=== PATIENT | male | born 1980 | race Caucasian/White ===

== ENCOUNTER → 2018-06-26 15:30 | Outpatient (CLI) | payer OTHER, SELFPAY ==
[2018-06-26 16:35] LABS: Homocysteine 18.9 umol/L (3.2-10.7)
== END ==
PROVIDERS: Family Provider Internal Medicine; PCP Internal Medicine; Referring Provider Internal Medicine; Visit Provider Internal Medicine
DX: Z13.79 Encounter for other screening for genetic and chromosomal anomalies (principal)
CPT/HCPCS: 36415; 83090; 83921

== ENCOUNTER → 2021-09-01 | Outpatient (CLI) | payer BC, SELFPAY ==
[2021-09-01 07:30] LABS: Absolute Lymphocyte Count 2.33 X10^3/uL (0.83-4.51); Absolute Neutrophil Count 3.9 X10^3/uL (2.0-7.7); Basophil# 0.06 X10^3/uL; Basophil% 0.8 % (0-1); Eosinophil# 0.11 X10^3/uL; Eosinophils% 1.6 % (0-5); Hematocrit 43.4 % (40-54); Lymphocyte # 2.33 X10^3/ul (0.83-4.51); Mean Corp Hgb Conc 34.6 g/dL (32-36); Mean Corpuscular Hgb 30.2 pg (27.0-32.0); Mean Corpuscular Volume 87.3 fL (80-94); Mean Platelet Vol. 10.2 fl (6.2-12.0); Monocyte# 0.63 X10^3/uL; Monocyte% 8.9 % (0-10); NRBC Flagged by Analyzer 0 % (0-5); Neutrophil # 3.93 X10^3/uL (2.7-7.7); Neutrophil % 55.6 % (47-70); Platelet Count 299 K/mm3 (150-450); RBC Distribution Width CV 12.6 % (11.6-14.6); RBC Distribution Width SD 40.4 fl (35.1-43.9); Red Blood Count 4.97 M/mm3 (4.6-6.2); White Blood Count 7.1 K/mm3 (4.4-11.0)
[2021-09-01 08:40] LABS: ALB/GLOB Ratio 1.1 RATIO (0.9-2.4); AST(SGOT) 27 U/L (15-37); Alanine Aminotransfer ALT/SGPT 36 U/L (16-61); Albumin, Serum 3.9 g/dL (3.2-5.0); Alkaline Phosphatase 61 U/L (45-117); Anion Gap 6 (5-15); BUN 14 mg/dL (7-18); BUN/Creat Ratio 11.6 RATIO (10-20); Calcium,Total 8.8 mg/dL (8.5-10.1); Chloride 109 mmol/L (98-107); Cholesterol 180 mg/dL (200); Creatinine, Serum 1.21 mg/dL (0.70-1.30); EST Glomerular Filtration Rate 70 mL/min (>60); Est Glom Filt Rate - Afr Amer 85 mL/min (>60); Globulin 3.7 g/dL (2.2-4.2); Glucose 109 mg/dL (74-106); High Density Lipoprotein 63 mg/dL; Potassium 4.1 mmol/L (3.5-5.1); Protein, Total 7.6 g/dL (6.4-8.2); Sodium Level 140 mmol/L (136-145); Thyroid Stim Hormone (TSH) 1.77 uIU/mL (0.358-3.74); Triglycerides 99 mg/dL; Very Low Density Lipoprotein 20 mg/dL (5-40)
== END | disposition home or self-care (01) ==
LOC: LAB 07:17
PROVIDERS: PCP Internal Medicine; Referring Provider Internal Medicine; Visit Provider Internal Medicine
DX: K21.9 Gastro-esophageal reflux disease without esophagitis (principal); F90.9 Attention-deficit hyperactivity disorder, unspecified type; L40.9 Psoriasis, unspecified; Z13.6 Encounter for screening for cardiovascular disorders
CPT/HCPCS: 36415; 80053; 80061; 84443; 85025

== ENCOUNTER → 2022-10-23 | Outpatient (CLI) | payer BC, SELFPAY ==
[2022-10-23 15:38] LABS: Absolute Lymphocyte Count 2.41 X10^3/uL (0.83-4.51); Absolute Neutrophil Count 4.8 X10^3/uL (2.0-7.7); Basophil# 0.07 X10^3/uL; Basophil% 0.9 % (0-1); Eosinophil# 0.06 X10^3/uL; Eosinophils% 0.8 % (0-5); Hematocrit 47.1 % (40-54); Hemoglobin 15.7 g/dL (13.0-16.5); Lymphocyte # 2.41 X10^3/ul (0.83-4.51); Lymphocyte % 30.2 % (19-41); Mean Corp Hgb Conc 33.3 g/dL (32-36); Mean Corpuscular Volume 89.9 fL (80-94); Mean Platelet Vol. 10.7 fl (6.2-12.0); Monocyte# 0.67 X10^3/uL; Monocyte% 8.4 % (0-10); NRBC Flagged by Analyzer 0 % (0-5); Neutrophil # 4.75 X10^3/uL (2.7-7.7); Neutrophil % 59.3 % (47-70); Platelet Count 353 K/mm3 (150-450); RBC Distribution Width CV 12.4 % (11.6-14.6); RBC Distribution Width SD 40.9 fl (35.1-43.9); Red Blood Count 5.24 M/mm3 (4.6-6.2)
[2022-10-23 15:50] LABS: ALB/GLOB Ratio 1.1 RATIO (0.9-2.4); AST(SGOT) 22 U/L (15-37); Alanine Aminotransfer ALT/SGPT 37 U/L (16-61); Albumin, Serum 4.1 g/dL (3.2-5.0); Alkaline Phosphatase 73 U/L (45-117); Anion Gap 5 (5-15); BUN 15 mg/dL (7-18); Calcium,Total 9.5 mg/dL (8.5-10.1); Chloride 104 mmol/L (98-107); Creatinine, Serum 1.25 mg/dL (0.70-1.30); EST Glomerular Filtration Rate 67 mL/min (>60); Est Glom Filt Rate - Afr Amer 82 mL/min (>60); Globulin 3.9 g/dL (2.2-4.2); Glucose 92 mg/dL (74-106); Potassium 3.9 mmol/L (3.5-5.1); Sodium Level 136 mmol/L (136-145)
[2022-10-23 15:52] LABS: Hemoglobin A1c 5.6 % (3.8-5.6)
== END | disposition home or self-care (01) ==
LOC: BIMLAB 12:11
PROVIDERS: PCP Internal Medicine; Referring Provider Internal Medicine; Visit Provider Internal Medicine
DX: Z00.00 Encounter for general adult medical examination without abnormal findings (principal); F90.9 Attention-deficit hyperactivity disorder, unspecified type; K21.9 Gastro-esophageal reflux disease without esophagitis
CPT/HCPCS: 36415; 80053; 83036; 85025

== ENCOUNTER → 2023-10-22 | Outpatient (CLI) | payer BC, SELFPAY ==
[2023-10-22 17:27] LABS: Vitamin B12 566 pg/mL (211-911); Vitamin D,25 Hydroxy 23.8 ng/mL
[2023-10-24 10:09] LABS: QNTFERON TB Mitogen Value > 10.00 IU/mL (.); QNTFERON TB Nil Value 0.02 IU/mL (.); QNTFERON TB1+ Ag Value 0.05 IU/mL (.); QNTFERON TB2+ Ag Value 0.03 IU/mL (.); QNTIFERON TB Positive Criteria Negative (Negative)
[2023-10-31 17:07] LABS: HOMOCYSTEINE 20.2 umol/L (0.0-14.5); Methylmalonic Acid Bld 412 nmol/L (0-378)
== END | disposition home or self-care (01) ==
PROVIDERS: PCP Internal Medicine; Referring Provider Physician Assistant; Visit Provider Physician Assistant
DX: L82.1 Other seborrheic keratosis (principal); L57.8 Other skin changes due to chronic exposure to nonionizing radiation; L81.4 Other melanin hyperpigmentation; D18.01 Hemangioma of skin and subcutaneous tissue; Z71.89 Other specified counseling; L40.0 Psoriasis vulgaris; L20.89 Other atopic dermatitis; Z79.899 Other long term (current) drug therapy; L71.8 Other rosacea; D48.5 Neoplasm of uncertain behavior of skin
CPT/HCPCS: 36415; 82306; 82607; 82746; 83090; 83921; 86480

== ENCOUNTER → 2023-10-26 | Outpatient (CLI) | payer BC, SELFPAY ==
[2023-10-26 12:23] LABS: Hematocrit 46.1 % (40-54); Hemoglobin 15.4 g/dL (13.0-16.5); Mean Corp Hgb Conc 33.4 g/dL (32-36); Mean Corpuscular Volume 89.9 fL (80-94); Mean Platelet Vol. 10.6 fl (6.2-12.0); Platelet Count 354 K/mm3 (150-450); RBC Distribution Width CV 12.7 % (11.6-14.6); RBC Distribution Width SD 41.8 fl (35.1-43.9); Red Blood Count 5.13 M/mm3 (4.6-6.2)
[2023-10-26 12:54] LABS: Vitamin D,25 Hydroxy 28.8 ng/mL
[2023-10-26 13:25] LABS: ALB/GLOB Ratio 1.3 RATIO (0.9-2.4); AST(SGOT) 28 U/L (15-37); Alanine Aminotransfer ALT/SGPT 34 U/L (16-61); Albumin, Serum 4.3 g/dL (3.2-5.0); Alkaline Phosphatase 68 U/L (45-117); Anion Gap 6 (5-15); BUN 17 mg/dL (7-18); BUN/Creat Ratio 13.9 RATIO (10-20); Calcium,Total 9.6 mg/dL (8.5-10.1); Chloride 106 mmol/L (98-107); Cholesterol 185 mg/dL (200); Creatinine, Serum 1.22 mg/dL (0.70-1.30); EST Glomerular Filtration Rate 69 mL/min (>60); Est Glom Filt Rate - Afr Amer 83 mL/min (>60); Globulin 3.4 g/dL (2.2-4.2); Glucose 108 mg/dL (74-106); High Density Lipoprotein 66 mg/dL; Potassium 4.5 mmol/L (3.5-5.1); Protein, Total 7.7 g/dL (6.4-8.2); Sodium Level 138 mmol/L (136-145); Triglycerides 78 mg/dL; Very Low Density Lipoprotein 16 mg/dL (5-40)
[2023-10-31 12:15] LABS: Testosterone, % Free 2.55 % (1.50-4.20); Testosterone, Free 9.28 ng/dL (5.00-21.00); Testosterone, Total 364 ng/dL (264-916)
== END | disposition home or self-care (01) ==
LOC: BIMLAB 09:20
PROVIDERS: PCP Internal Medicine; Referring Provider Physician Assistant; Visit Provider Physician Assistant
DX: Z00.00 Encounter for general adult medical examination without abnormal findings (principal); R53.83 Other fatigue
CPT/HCPCS: 36415; 80053; 80061; 82306; 84402; 84403; 85027

== ENCOUNTER → 2024-11-29 | Outpatient (CLI) | payer BC, SELFPAY ==
--- OUTSIDE RECORDS SUMMARY | 2024-11-29 08:32 | XMS RPT_ITS | CCD ---
Author Organization [facility] Care Team Providers Care Mis Specialist Name Role Phone Unavailable Primary Care Provider Unavailrambo e Dr. Ally Griggs Primary Care Provider Dr. Ally Griggs Attending Provider [phone] Dr. Ally Griggs Referring Provider Ally Griggs Referring Unavailable Ally Griggs Primary Care Unavailable Carlos Velazquez Attending Unavailable Ally Griggs Primary Care Unavailable Yang Cai Consulting Unavailable Lien Bauer Referring Unavailable Lien Bauer Attending Unavailable Ally Griggs Primary Care Unavailable Carlos Velazquez Referring Unavailable Carlos Velazquez Attending Unavailable Unavailable Primary Care Provider Unavailabl e Allergies Allergy Classification Reported Allergen(s) Allergy Type Date of Onset Reaction(s) Facility (4 sources) House dust mite; Translations: [DUST MITES] Allergy to substance 4 Other: See Comments (4 sources) Seasonal allergy; Translations: [SEASONAL ALLERGIES] Allergy to substance 4 Itching Work Phone: (5 sources) Feather; Translations: [feathers] Drug Allergy 3 Intolerance (3 sources) short ragweed pollen extract; Translations: [WEED POLLEN-SHORT RAGWEED] Drug Allergy 3 Intolerance (1 source) house dust allergenic extract Drug Allergy 3 unknown [facility] (2 sources) Ragweed pollen; Translations: [ragweed pollen] Propensity to adverse reactions 3 OTHER [facility] (1 source) house dust allergenic extract Drug Allergy 4 [facility] Repository Medications Current Medications Medication Drug Class(es) Dates Sig (Normalized) Sig (Original) ALLERGY SHOTS (1 source) Start: 3 ALLERGY SHOTS Active SC .WEEKLY October 23, 2022 12:00am amoxicillin 500 mg oral capsule (1 source) Penicillin-class Antibacterial Start: 2 End: 2 take 1 capsule by mouth twice daily amoxicillin (POLYMOX, AMOXIL) 500 mg capsule Take 1 capsule by mouth twice daily for 10 days. 20 capsule 0 09/26/2021 10/06/2021 Active Comment on above: Take 1 capsule by mo [facility] twice daily for 10 days. 24 hr amphetamine aspartate 5 mg / amphetamine sulfate 5 mg / dextroamphetamine saccharate 5 mg / dextroamphetamine sulfate 5 mg extended release oral capsule (1 source) Central Nervous System Stimulant Start: 4 take 1 capsule by mouth once daily in the morning amphetamine-dextroamp hetamine XR (ADDERALL XR) 20 mg capsule take 1 capsule by mouth daily in the morning 10/25/2023 Active cyclobenzaprine hydrochloride 10 mg oral tablet (1 source) Muscle Relaxant Start: 4 End: 4 take 1 tablet by mouth every eight hours as needed for muscle spasms cyclobenzaprine (FLEXERIL) 10 mg tablet Indications: Acute bilateral low back pain without sciatica Take 1 tablet by mouth every 8 hours as needed for muscle spasm for up to 7 days. 15 tablet 12/16/2023 12/23/2023 Active dexmethylphenidate (1 source) Central Nervous System Stimulant Start: 3 DEXMETHYLPHENIDATE ER Active PO DAILY October 23, 2022 12:00am Dupilumab (1 source) Start: 2 Dupilumab (Dupixent Pen) 200 mg/1.14 mL pen injector Active 200 MG SC every 2 weeks August 31, 2021 12:00am 24 hr guanFACINE 1 mg extended release oral tablet (1 source) Central alpha-2 Adrenergic Agonist Start: 3 take 1 mg by mouth once daily Guanfacine Active 1 MG PO DAILY October 23, 2022 12:00am 1 ml guselkumab 100 mg/ml prefilled syringe (3 sources) Interleukin-23 Antagonist Start: 3 TREMFYA 100 mg/mL 06/02/2022 Active Start: 08-31-2021 Guselkumab (Tr emfya) 100 mg/mL auto-injector Active 100 MG SC every 8 weeks August 31, 2021 12:00am Multivitamin preparation (1 source) Start: 08-31-2021 take 1 tablet by mouth once daily Multivitamin Active 1 TABLET PO DAILY August 31, 2021 12:00am omeprazole 10 mg delayed release oral capsule (8 sources) Proton Pump Inhibitor Start: 08-31-2021 End: 10-23-2022 take 10 mg by mouth once daily Omeprazole Active 10 MG PO DAILY October 23, 2022 11:53am Start: 09-07-2020 End: 12-16-2023 take 2 capsules by mouth once daily omeprazole (PRILOSEC) 20 mg capsule Take 2 capsules by mouth once daily. 60 capsule 4 09/17/2020 12/16/2023 Discontinued (Duplicate Entry) Comment on above: Take 2 capsules by m outh daily before breakfast. 1/2 hr before meal. Take 2 capsules by m outh once daily. oseltamivir 75 mg oral capsule (1 source) Neuraminidase Inhibitor Start: 3 End: 3 take 1 capsule by mouth once daily oseltamivir (TAMIFLU) 75 mg capsule Indications: Exposure to influenza Take 1 capsule by mouth once daily for 10 days. 10 capsule 0 06/21/2022 07/01/2022 Active Comment on above: Take 1 capsule by mo [facility] once daily for 10 days. QELBREE 100 mg capsule, extended release (1 source) Start: 4 take 1 capsule by mouth once QELBREE 100 mg capsule, extended release Take 1 capsule by mouth every afternoon. 12/02/2023 Active Completed/Discontinued Medications Medication Drug Class(es) Dates Sig (Normalized) Sig (Original) buPROPion hydrochloride 75 mg oral tablet (3 sources) Aminoketone Start: 06-10-2020 End: 12-16-2023 take 1 tablet by mouth twice daily buPROPion (WELLBUTRIN) 75 mg tablet Indications: Attention deficit Take 1 tablet by mouth twice daily. 180 tablet 3 06/10/2020 12/16/2023 Discontinued Comment on above: Take 1 tablet by gagan twice daily. 2 ml dupilumab 150 mg/ml auto-injector (3 sources) Interleukin-4 Receptor alpha Antagonist Start: 04-13-2022 End: 12-16-2023 DUPIXENT PEN 300 mg/2 mL pen fexofenadine hydrochloride 60 mg oral tablet (1 source) Histamine-1 Receptor Antagonist Start: 08-31-2021 End: 10-23-2022 take 1 tablet by mouth twice daily Fexofenadine (Alison Allergy) 60 mg tablet Discontinued 60 MG PO TWICE A DAY August 31, 2021 12:00am October 23, 2022 11:30am fluticasone propionate 0.05 mg/actuat metered dose nasal spray (1 source) Corticosteroid Start: 08-31-2021 End: 10-23-2022 take 1 spray(s) nasal route once daily Fluticasone Propionate Discontinued 1 SPRAY INTRANASAL DAILY August 31, 2021 12:00am October 23, 2022 11:30am administer into each nostril nortriptyline 25 mg oral capsule (1 source) Tricyclic Antidepressant Start: 09-01-2021 End: 10-23-2022 take 1 capsule by mouth at bedtime Nortriptyline (Pamelor) 25 mg capsule Discontinued 25 MG PO AT BEDTIME 30 September 01, 2021 12:00am October 23, 2022 11:30am Problems Active Problems Problem Classification Problem Date Documented Da te Episodic/Chronic Attention-deficit, conduct, and disruptive behavior disorders (1 source) Attention-deficit hyperactivity disorder, unspecified type; Translations: [Attention deficit disorder with hyperactivity] 10-23-2022 Chronic Disorders usually diagnosed in infancy, childhood, or adolescence (1 source) Attention deficit hyperactivity disorder, predominantly inattentive type; Translations: [Other specified behavioral and emotional disorders with onset usually occurring in childhood and adolescence] 09-01-2021 Chronic Esophageal disorders (2 sources) Gastroesophageal reflux disease; Translations: [Gastro-esophageal reflux disease without esophagitis] 08-31-2021 Chronic Immunizations and screening for infectious disease (1 source) Contact with and (suspected) exposure to other viral communicable diseases; Translations: [Contact with or exposure to other viral diseases] Episodic Malaise and fatigue (1 source) Other fatigue; Translations: [Other fatigue] Onset: Episodic Mood disorders (3 sources) Depressive disorder; Translations: [Depressed] Onset: 4 04-11-2021 Chronic Other circulatory disease (1 source) Elevated blood-pressure reading, without diagnosis of hypertension; Translations: [Elevated blood pressure reading without diagnosis of hypertension] 10-23-2022 Episodic Other gastrointestinal disorders (3 sources) Irritable bowel syndrome; Translations: [Irritable bowel syndrome without diarrhea] Onset: 4 11-08-2013 Chronic Other inflammatory condition of skin (1 source) Psoriasis; Translations: [Psoriasis, unspecified] 08-31-2021 Chronic Other inflammatory condition of skin (1 source) Psoriasis, unspecified; Translations: [Other psoriasis] 10-23-2022 Chronic Other nervous system disorders (3 sources) Disturbance of attention; Translations: [Attention and concentration deficit] Onset: 4 04-11-2021 Chronic Other skin disorders (1 source) Other seborrheic keratosis; Translations: [Other seborrheic keratosis] Onset: Episodic Other upper respiratory disease (1 source) Other seasonal allergic rhinitis; Translations: [Allergic rhinitis, cause unspecified] 10-23-2022 Chronic Other upper respiratory infections (1 source) Sore throat symptom; Translations: [Acute pharyngitis, unspecified] Episodic Residual codes; unclassified (1 source) Influenza-like symptoms; Translations: [Other general symptoms and signs] Episodic Spondylosis; intervertebral disc disorders; other back problems (1 source) Acute low back pain; Translations: [Acute bilateral low back pain without sciatica] 12-16-2023 Episodic Past or Other Problems Problem Classification Problem Date Documented Da te Episodic/Chronic Abdominal pain (1 source) Right lower quadrant pain; Translations: [Right lower quadrant pain] Onset: 05-18-2014 Resolved: 06-18-2019 06-18-2019 Episodic Allergic reactions (3 sources) Allergic disposition; Translations: [Allergy status to unspecified drugs, medicaments and biological substances status] Onset: 02-09-2014 04-11-2021 Episodic Calculus of urinary tract (3 sources) History of calculus of kidney; Translations: [Personal history of urinary calculi] Onset: 05-18-2014 05-18-2014 Episodic Other male genital disorders (1 source) Pain in testicle; Translations: [Testicular pain, unspecified] Onset: 05-18-2014 Resolved: 06-18-2019 06-18-2019 Episodic Other upper respiratory disease (3 sources) Nasal congestion; Translations: [Nasal congestion] Onset: 02-09-2014 02-09-2014 Episodic Results Test Name Value Interpretation Reference Range Facility [facility] 12-16-2023 CNOV Office Visit (UCWSTR ) REMINGTON BOYER ([id number]) 1980 M Date Time Provider Department 12/16/23 2:15 PM ANTHONY ANDERSON [facility] During your visit today, we recorded the following information about you: Temperature Pulse Respiration Blood pressure 98.1 degrees 80/minute 16/minute 138/82 Weight 93.1 kg Anthony Anderson MD 12/16/2023 2:30 PM Signed Patient presents with: Low Back Pain: left side x 3 days, moved fish tank,increased this morning while bending over HPI: Back pain: Duration: initially tweaked his back lifting a fish tank 2 days ago; significantly worsened bending over to get a pet bowl this morning Character: tight, spasm, sharp Location: initially band bilateral lumbar, more right low back today Radiation: No. Aggravating: bending and twisting Relieving: standing, heat Pain relievers: aleve, muscle relaxer Associated: back seemed to seize up this morning Pertinent negatives: Denies numbness or weakness, fever, loss of bladder or bowel control. MEDICATIONS: amphetamine-dextroamphetami ne XR (ADDERALL XR) 20 mg capsule take 1 capsule by mouth daily in the morning QELBREE 100 mg capsule, extended release Take 1 capsule by mouth every afternoon. TREMFYA 100 mg/mL omeprazole (PRILOSEC) 20 mg capsule Take 2 capsules by mouth daily before breakfast. 1/2 hr before meal. dupilumab (DUPIXENT PEN) 300 mg/2 mL pen injection ALLERGIES: ALLERGIES Allergen Reactions Dust Mites Other: See Comments Positive skin test dust mites. Feathers Intolerance Seasonal Allergies Itching [place] Pollen-Short R* Intolerance VITALS: BP 138/82 Pulse 80 Temp 36.7 ?C (98.1 ?F) Resp 16 Wt 93.1 kg (205 lb 4 oz) SpO2 100% BMI 27.08 kg/m? PHYSICAL EXAM: GEN: pleasant, alert, no acute distress, stands for comfort, painful transition to table HEENT: PERRL, EOMI, MMM HEART: regular rate, regular rhythm, no murmurs LUNGS: clear to auscultation, no wheezes or crackles, no increased WOB BACK: Normal curvature of spine. No midline tenderness. Left lateral lumbar tenderness. Straight leg test uncomfortable on the left. Deep tendon reflexes 2+/4 at patellas. Normal lower extremity strength. ASSESSMENT/PLAN: 1. Acute bilateral low back pain without sciatica - ICD9: 724.2, 338.19, ICD10: M54.50 Back strain without red flags. As needed analgesia, ice, heat - CYCLOBENZAPRINE 10 MG TABLET Avoid bed rest Seek immediate evaluation for loss of bladder or bowel control, unexplained fever, or progressive weakness or numbness. Anthony Anderson MD Allergies As of Date: 12/16/2023 Noted Allergy Reaction DUST MITES 03/16/2014 14 - Other: See Comments Comments: Positive skin test dust mites. FEATHERS 06/21/2022 5 - Intolerance SEASONAL ALLERGIES 02/09/2014 9 - Itching WEED POLLEN-SHORT RAGWEED 06/21/2022 5 - Intolerance Date Reviewed: 12/16/2023 Reviewed by: Laura Jay MA - Fully Assessed Reason for Visit: Low Back Pain [126] Cmt: left side x 3 days, moved fish tank,increased this morning while bending over Primary Visit Diagnosis:Acute bilateral low back pain without sciatica [M54.50] Order(s):cyclobenzaprine (FLEXERIL) 10 mg tabletTake 1 tablet by mouth every 8 hours as needed for muscle spasm for up to 7 days.Disp: 15 tabletRfl: 0 Prescriptions as of 12/16/2023 - amphetamine-dextroamphetami ne XR (ADDERALL XR) 20 mg capsule take 1 capsule by mouth daily in the morning - QELBREE 100 mg capsule, extended release Take 1 capsule by mouth every afternoon. - dupilumab (DUPIXENT PEN) 300 mg/2 mL pen injection - cyclobenzaprine (FLEXERIL) 10 mg tablet Take 1 tablet by mouth every 8 hours as needed for muscle spasm for up to 7 days. - TREMFYA 100 mg/mL - omeprazole (PRILOSEC) 20 mg capsule Take 2 capsules by mouth daily before breakfast. 1/2 hr before meal. Problem List As Of Date 12/16/2023 Noted Resolved Depressed [F32.A] 11/08/2013 IBS (irritable bowel syndrome) [K58.9] 11/08/2013 Attention deficit [R41.840] 11/08/2013 Multiple allergies [Z88.9] 02/09/2014 Stuffy nose [R09.81] 02/09/2014 Testicular pain [N50.819] 05/18/2014 06/18/2019 Right lower quadrant pain [R10.31] 05/18/2014 06/18/2019 History of kidney stones [Z87.442] 05/18/2014 Prescriptions ordered this encounter Disp Refills Start End CYCLOBENZAPRINE 10 MG TABLET 15 t* 0 12/16/2023 12/23/2023 Route: ORAL Sig: Take 1 tablet by mouth every 8 hours as needed for muscle spasm for up to 7 days. Medications Discontinued During This Encounter Prescriptions - buPROPion (WELLBUTRIN) 75 mg tablet (Discontinued) Reported on 12/16/2023 - DUPIXENT PEN 300 mg/2 mL pen (Discontinued) Reported on 12/16/2023 - omeprazole (PRILOSEC) 20 mg capsule (Discontinued) Take 2 capsules by mouth once daily. Encounter Status:Closed by ANTHONY ANDERSON on 12/16/23 Normal [facility] L803.0600on 10-31-2023 HOMOCYSTEINE 20.2 umol/L Abnormal 0.0-14.5 [facility] Comment on above: Order Comment: Test( s) 205813-Xziyfymwxmgwf Acid, Serum was developed and its performance characteristics determined by [facility]. It has not been cleared or approved by the Food and Drug Administration. Result Comment: Perf ormed at: - [facility] [address] [id number] Medical Practice Manager: Sophie Rock MD, Phone: [phone] Performed at: [address], [place], [place] [id number] Medical Practice Manager: Nik Luke PhD, Phone: [phone] Performed By: #### L 7400.3000, L506.1000, L503.0105, L803.0600, L3400.8000, L506.0250 #### [facility] [address] [place], [address] Methylmalonic Acid [place] METHYLMAL ACID 412 nmol/L Abnormal 0-378 [facility] Comment on above: Order Comment: Test( s) 208084-Whohhppllyrbk Acid, Serumwas developed and its performance characteristicsdetermined by [facility]. It has not been cleared or approvedby the Food and Drug Administration. Performed By: #### L 3100.5310, L100.0500, L500.4100, L500.4050, L506.1000 #### [facility] [address] [place], [address] Testosterone, Total / Freeon 10-31-2023 [facility] 9.28 ng/dL Normal 5.00-21.00 [facility] Comment on above: Order Comment: N Performed By: #### L 3100.5310, L100.0500, L500.4100, L500.4050, L506.1000 #### [facility] [address] [place], [address] TESTOSTERONE, T 364 ng/dL Normal 264-916 [facility] Comment on above: Order Comment: N Result Comment: Adul t male reference interval is based on a population of healthy nonobese males (BMI <30) between 19 and 39 years old. lisa Goodman.al. JCEM 2017,102;5656-6903. PMID: [id number]. Performed By: #### L 3100.5310, L100.0500, L500.4100, L500.4050, L506.1000 #### [facility] [address] [place], [address] TESTOSTERONE,%F 2.55 Normal 1.50-4.20 [facility] Comment on above: Order Comment: N Result Comment: Perf ormed at: [facility] [id number] Medical Practice Manager: Nik Luke PhD, Phone: [phone] Performed at: - [facility] [id number] Medical Practice Manager: Sophie Rock MD, Phone: [phone] Performed By: #### L 3100.5310, L100.0500, L500.4100, L500.4050, L506.1000 #### [facility] [address] [place], [address] CBC-Complete Blood Cnt No Di ffon 10-26-2023 Erythrocyte distribution width (RBC) [Ratio] 12.7 % Normal 11.6-14.6 [facility] Comment on above: Performed By: #### L 3100.5310, L100.0500, L500.4100, L500.4050, L506.1000 #### [facility] [address] [place], [address] Hematocrit (Bld) [Volume fraction] 46.1 % Normal 40-54 [facility] Comment on above: Performed By: #### L 3100.5310, L100.0500, L500.4100, L500.4050, L506.1000 #### [facility] [address] [place], [address] Hemoglobin (Bld) [Mass/Vol] 15.4 g/dL Normal 13.0-16.5 [facility] Comment on above: Performed By: #### L 3100.5310, L100.0500, L500.4100, L500.4050, L506.1000 #### [facility] [address] [place], [address] MCH (RBC) [Entitic mass] 30.0 pg Normal 27.0-32.0 [facility] Comment on above: Performed By: #### L 3100.5310, L100.0500, L500.4100, L500.4050, L506.1000 #### [facility] [address] [place], [address] MCHC (RBC) [Mass/Vol] 33.4 g/dL Normal 32-36 [facility] Comment on above: Performed By: #### L 3100.5310, L100.0500, L500.4100, L500.4050, L506.1000 #### [facility] [address] [place], [address] MCV (RBC) [Entitic vol] 89.9 fL Normal 80-94 [facility] Comment on above: Performed By: #### L 3100.5310, L100.0500, L500.4100, L500.4050, L506.1000 #### [facility] [address] [place], [address] Platelet mean volume (Bld) [Entitic vol] 10.6 fL Normal 6.2-12.0 [facility] Comment on above: Performed By: #### L 3100.5310, L100.0500, L500.4100, L500.4050, L506.1000 #### [facility] [address] [place], [address] Platelets (Bld) [#/Vol] 354 10*3/uL Normal 150-450 [facility] Comment on above: Performed By: #### L 3100.5310, L100.0500, L500.4100, L500.4050, L506.1000 #### [facility] [address] [place], [address] RBC (Bld) [#/Vol] 5.13 10*6/uL Normal 4.6-6.2 [facility] Comment on above: Performed By: #### L 3100.5310, L100.0500, L500.4100, L500.4050, L506.1000 #### [facility] [address] [place], [address] RDW SD 41.8 fl Normal 35.1-43.9 [facility] Comment on above: Performed By: #### L 3100.5310, L100.0500, L500.4100, L500.4050, L506.1000 #### [facility] [address] [place], [address] WBC (Bld) [#/Vol] 7.0 10*3/uL Normal 4.4-11.0 [facility] Comment on above: Performed By: #### L 3100.5310, L100.0500, L500.4100, L500.4050, L506.1000 #### [facility] [address] [place], [address] Comprehensive Metabolic Prof [facility] 10-26-2023 Albumin [Mass/Vol] 4.3 g/dL Normal 3.2-5.0 [facility] Comment on above: Performed By: #### L 3100.5310, L100.0500, L500.4100, L500.4050, L506.1000 #### [facility] [address] [place], [address] Albumin/Globulin [Mass ratio] 1.3 {ratio} Normal 0.9-2.4 [facility] Comment on above: Performed By: #### L 3100.5310, L100.0500, L500.4100, L500.4050, L506.1000 #### [facility] [address] [place], [address] ALK P 68 U/L Normal 45-117 [facility] Comment on above: Performed By: #### L 3100.5310, L100.0500, L500.4100, L500.4050, L506.1000 #### [facility] [address] [place], [address] ALT [Catalytic activity/Vol] 34 U/L Normal 16-61 [facility] Comment on above: Performed By: #### L 3100.5310, L100.0500, L500.4100, L500.4050, L506.1000 #### [facility] [address] [place], [address] AST [Catalytic activity/Vol] 28 U/L Normal 15-37 [facility] Comment on above: Performed By: #### L 3100.5310, L100.0500, L500.4100, L500.4050, L506.1000 #### [facility] [address] [place], [address] Bilirubin [Mass/Vol] 0.80 mg/dL Normal 0.20-1.00 [facility] Comment on above: Result Comment: For patients on eltrombopag therapy, use of Dimension [place] TBIL is not recommended. Performed By: #### L 3100.5310, L100.0500, L500.4100, L500.4050, L506.1000 #### [facility] [address] [place], [address] BUN/CRE 13.9 RATIO Normal 10-20 [facility] Comment on above: Performed By: #### L 3100.5310, L100.0500, L500.4100, L500.4050, L506.1000 #### [facility] [address] [place], [address] CA,Total 9.6 mg/dL Normal 8.5-10.1 [facility] Comment on above: Performed By: #### L 3100.5310, L100.0500, L500.4100, L500.4050, L506.1000 #### [facility] [address] [place], [address] Chloride [Moles/Vol] 106 mmol/L Normal 98-107 [facility] Comment on above: Performed By: #### L 3100.5310, L100.0500, L500.4100, L500.4050, L506.1000 #### [facility] [address] [place], [address] CO2 [Moles/Vol] 26.0 mmol/L Normal 21.0-32.0 [facility] Comment on above: Performed By: #### L 3100.5310, L100.0500, L500.4100, L500.4050, L506.1000 #### [facility] [address] [place], [address] Creatinine [Mass/Vol] 1.22 mg/dL Normal 0.70-1.30 [facility] Comment on above: Result Comment: The validity of the calculated GFR GFRAA in patients over 70 years has not been determined. Clinical correlation is essential. Performed By: #### L 3100.5310, L100.0500, L500.4100, L500.4050, L506.1000 #### [facility] [address] [place], [address] EST GFR - AA 83 mL/min Normal >60 [facility] Comment on above: Result Comment: Afri can Austrian GFR Calc Performed By: #### L 3100.5310, L100.0500, L500.4100, L500.4050, L506.1000 #### [facility] [address] [place], [address] GAP 6 Normal 5-15 [facility] Comment on above: Performed By: #### L 3100.5310, L100.0500, L500.4100, L500.4050, L506.1000 #### [facility] [address] [place], [address] GFR/1.73 sq M.predicted among non-blacks MDRD (S/P/Bld) [Vol rate/Area] 69 mL/min/{1.73_m2} Normal >60 [facility] Comment on above: Result Comment: Non- GFR Calc Performed By: #### L 3100.5310, L100.0500, L500.4100, L500.4050, L506.1000 #### [facility] [address] [place], [address] Globulin (S) [Mass/Vol] 3.4 g/dL Normal 2.2-4.2 [facility] Comment on above: Performed By: #### L 3100.5310, L100.0500, L500.4100, L500.4050, L506.1000 #### [facility] [address] [place], [address] Glucose [Mass/Vol] 108 mg/dL High 74-106 [facility] Comment on above: Result Comment: Fast ing Glucose result from 100 to 125 mg/dL suggests IMPAIRED HOMEOSTASIS per A.D.A. criteria. Performed By: #### L 3100.5310, L100.0500, L500.4100, L500.4050, L506.1000 #### [facility] [address] [place], [address] Potassium [Moles/Vol] 4.5 mmol/L Normal 3.5-5.1 [facility] Comment on above: Performed By: #### L 3100.5310, L100.0500, L500.4100, L500.4050, L506.1000 #### [facility] [address] [place], [address] Sodium [Moles/Vol] 138 mmol/L Normal 136-145 [facility] Comment on above: Performed By: #### L 3100.5310, L100.0500, L500.4100, L500.4050, L506.1000 #### [facility] [address] [place], [address] T PROT 7.7 g/dL Normal 6.4-8.2 [facility] Comment on above: Performed By: #### L 3100.5310, L100.0500, L500.4100, L500.4050, L506.1000 #### [facility] [address] [place], [address] Urea nitrogen [Mass/Vol] 17 mg/dL Normal 7-18 [facility] Comment on above: Performed By: #### L 3100.5310, L100.0500, L500.4100, L500.4050, L506.1000 #### [facility] [address] [place], [address] Internal Medicine Office Vis iton 10-26-2023 Internal Medicine Office Visit [facility] [address] [place], [place] [address] OFFICE VISIT Date of Service: 10/26/23 MR#: [id number] Acct: [id number] Name: REMINGTON BOYER Rep #: [id number] : 1980 Provider: MENDEZ Finch Age/Sex: 42/M Location: [facility] Status: Signed Intake Vital Signs 10/23/22 11:35 10/26/23 08:37 Height 6 ft 1 in 6 ft 1 in Weight: 202 lb 8 oz BMI 26.6 BP 136/70 H Blood Pressure Location Lt brachial Position Sitting Respiration 16 Pulse 76 Pulse Source Monitor Temp 97.6 F L Temp Source Temporal Pulse Oximetry (%) 99 Oxygen Delivery Method room air Intake Visit Reasons: YEARLY 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: No Accompanied by: Self Is patient in pain?: No Allergies house dust Allergy (Mild, Verified 10/26/23 08:33) unknown feathers Adverse Reaction (Mild, Verified 10/26/23 08:33) Other ragweed pollen Adverse Reaction (Mild, Verified 10/26/23 08:33) OTHER Medications ???Medication ???Instructions ???Recorded ???Confirmed ???Type dupilumab 200 mg/1.14 mL 200 mg subcut Q2W 08/31/21 10/26/23 History subcutaneous pen injector (Dupixent) guselkumab 100 mg/mL subcutaneous 100 mg subcut Q8W 08/31/21 10/26/23 History auto-injector (Tremfya) multivitamin 1 tab PO DAILY 08/31/21 10/26/23 History ALLERGY SHOTS subcut .WEEKLY 10/23/22 10/26/23 History omeprazole 10 mg capsule,delayed 10 mg PO DAILY #90 caps 04/23/23 10/26/23 Rx release dexmethylphenidate 20 mg 20 mg PO DAILY 10/26/23 10/26/23 History capsule,extended release -53 PFSH Medical History Autism spectrum Psoriasis ADD (attention deficit disorder) GERD (gastroesophageal reflux disease) History of kidney stones Seasonal allergies Surgical History History of colonoscopy Family History Grandfather Colon cancer in 40s Grandmother Dementia Throat cancer Social History household members: spouse number of children: 2 current occupational status: employed 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 Patient sees dermatology and has been treated for psoriasis. He has continue with those medications without any change in his dosing. He sees them every 6 months for check and f/u. Patient does take omeprazole which he has been taking off and on for years he states. He has been taking this regularly since 2020. He has had upper endoscopies done previously being due in 2025 for repeat evaluation. As long as he takes the omeprazole, then his symptoms are well controlled. As far as he knows he is UTD with immunizations HE does have some environmental allergies and he sees an shrinking machine operator for this. He currently is treated with weekly allergy shots and then will use INCS for flare-ups as well as ocassional antihistamines No nicotine use He does consume caffeine regularly having two travel mugs per day of coffee He does continue to f/u with his Psychiatrist for his ADHD. He is currently getting ready to start a stimulant / non-stimulant combination of medications. He sees them regularly for evaluations / check-ups He does do a good job of getting exercise trying to do some weight training as well as some walking / hiking. PAtient states that he does feel like he sleeps at the same time does have difficulties in the mornings waking up. He does snore and has been checked in the past for JANET. He uses anti-snoring devices which do help somewhat. He gets probably 7-8 hours of sleep per night. ROS Const Constitutional: No body ache, chills, excessive sweating, fatigue, fever(s), frequent falls, headache(s), snoring, weakness or change in appetite Eyes Eyes: No blurry vision, change in vision, eye pain or Light sensitivity ENT ENT: No abnormal hearing, ear or mastoid pain, tinnitus, nasal congestion, headache(s), neck pain or sore throat Resp Respiratory: No cough, shortness of breath, snoring or wheezing Cardio Cardiology: No chest pain at rest, chest pain with exertion, excessive sweating, dyspnea on exertion, lightheadedness, orthopnea or palpitations Gastro GI: No abdominal pain, change in bowel habits, constipation, cramping, diarrhe (more content not included)... Normal [facility] Lipid Profileon 10-26-2023 Cholesterol [Mass/Vol] 185 mg/dL Normal 200 [facility] Comment on above: Result Comment: <200 mg/dL Desirable 200-240 mg/dL Borderline >240 mg/dL High Risk Performed By: #### L 3100.5310, L100.0500, L500.4100, L500.4050, L506.1000 #### [facility] [address] [place], [address] Cholesterol in HDL [Mass/Vol] 66 mg/dL Normal [facility] Comment on above: Result Comment: The drugs N-Acetylcysteine and Metamizole may falsely depress this assay. Reference Range HDL <40 mg/dL Low HDL Cholesterol HDL >or= 60 mg/dL High HDL Cholesterol Performed By: #### L 3100.5310, L100.0500, L500.4100, L500.4050, L506.1000 #### [facility] [address] [place], [address] Cholesterol in LDL [Mass/Vol] 103 mg/dL Normal 0-130 [facility] Comment on above: Performed By: #### L 3100.5310, L100.0500, L500.4100, L500.4050, L506.1000 #### [facility] [address] [place], [address] Cholesterol in VLDL [Mass/Vol] 16 mg/dL Normal 5-40 [facility] Comment on above: Performed By: #### L 3100.5310, L100.0500, L500.4100, L500.4050, L506.1000 #### [facility] [address] [place], [address] Triglyceride [Mass/Vol] 78 mg/dL Normal [facility] Comment on above: Result Comment: The drugs N-Acetylcysteine and Metamizole may falsely depress this assay. Serum Triglycerides Reference Interval Normal <150 mg/dL Borderline high 150 - 199 mg/dL High 200 - 499 mg/dL Very High > or = 500 mg/dL Performed By: #### L 3100.5310, L100.0500, L500.4100, L500.4050, L506.1000 #### [facility] [address] [place], [address] Vitamin D,25 Hydroxyon 10-25 Vitamin D 25-OH 28.8 ng/mL Normal [facility] Comment on above: Result Comment: Radha min D 25(OH) Status Range Deficiency <20 ng/mL (50nmol/L) Insufficiency 20 - 30 ng/mL (50 - 75 nmol/L) Sufficiency 30 - 100 ng/mL (75 - 250 nmol/L) Toxicity >100 ng/mL (>250 nmol/L) Performed By: #### L 3100.5310, L100.0500, L500.4100, L500.4050, L506.1000 #### [facility] [address] [place], [address] Quantiferon TB-Gold+on 10-23 QFT MITOGEN TERESE > 10.00 Normal . [facility] Comment on above: Order Comment: DIANA WEBER GETS VITD FOL B12 MMA HOMO DR. BURDEN GETS QF Performed By: #### L 7400.3000, L506.1000, L503.0105, L803.0600, L3400.8000, L506.0250 #### [facility] [address] [place], [address] QFT NIL VALUE 0.02 IU/mL Normal . [facility] Comment on above: Order Comment: DIANA WEBER GETS VITD FOL B12 MMA HOMO DR. BURDEN GETS QF Performed By: #### L 7400.3000, L506.1000, L503.0105, L803.0600, L3400.8000, L506.0250 #### [facility] [address] [place], [address] QFT TB GOLD+ Comment Normal . [facility] Comment on above: Order Comment: DIANA WEBER GETS VITD FOL B12 MMA HOMO DR. BURDEN GETS QF Result Comment: Ron tiFERON-TB Gold Plus is a qualitative indirect test for M tuberculosis infection (including disease) and is intended for use in conjunction with risk assessment, radiography, and other medical and diagnostic evaluations. The QuantiFERON-TB Gold Plus result is determined by subtracting the Nil value from either TB antigen (Ag) value. The Mitogen tube serves as a control for the test. Performed By: #### L 7400.3000, L506.1000, L503.0105, L803.0600, L3400.8000, L506.0250 #### [facility] [address] [place], [place], [phone] QFT TB POS CRIT Negative Normal Negative [facility] Comment on above: Order Comment: DIANA WEBER GETS VITD FOL B12 [address] HOMO [address] BURDEN GETS QF Result Comment: No r esponse to M tuberculosis antigens detected. Infection with M tuberculosis is unlikely, but high risk individuals should be considered for additional testing (ATS/IDSA/CDC Clinical Practice Guidelines, 2017). The reference range is an Antigen minus Nil result of <0.35 IU/mL. The specimen received for QuantiFERON testing was incubated by the ordering institution. Specific procedures outlined in our Directory of Services and in the package insert for the QuantiFERON Gold (In Tube) test must be followed to enable for proper stimulation of cells for the production of interferon gamma. Chemiluminescence immunoassay methodology Performed at: [facility] [id number] Medical Practice Manager: Nik Luke PhD, Phone: [phone] Performed By: #### L 7400.3000, L506.1000, L503.0105, L803.0600, L3400.8000, L506.0250 #### [facility] [address] [place], [place], [phone] ([phone]) QFT TB1+ AG TERESE 0.05 IU/mL Normal . [facility] Comment on above: Order Comment: DIANA WEBER GETS VITD FOL B12 MMA HOMO DR. BURDEN GETS QF Performed By: #### L 7400.3000, L506.1000, L503.0105, L803.0600, L3400.8000, L506.0250 #### [facility] [address] [place], [address] QFT TB2+ AG TERESE 0.03 IU/mL Normal . [facility] Comment on above: Order Comment: DIANA WEBER GETS VITD FOL B12 [address] HOMO [address] BURDEN GETS QF Performed By: #### L 7400.3000, L506.1000, L503.0105, L803.0600, L3400.8000, L506.0250 #### [facility] [address] [place], [address] Folates, (Folic Acid)on FOLATES 23.20 ng/mL Normal 3.1-55.4 [facility] Comment on above: Order Comment: DIANA WEBER GETS VITD FOL B12 [address] HOM[address] BURDEN GETS QF UNK N Performed By: #### L 7400.3000, L506.1000, L503.0105, L803.0600, L3400.8000, L506.0250 #### [facility] [address] [place], [address] Vitamin B12on 10-22-2023 Cobalamin (Vitamin B12) [Mass/Vol] 566 pg/mL Normal 211-911 [facility] Comment on above: Order Comment: DIANA WEBER GETS VITD FOL B12 [address] HOM[address] BURDEN GETS QF Performed By: #### L 7400.3000, L506.1000, L503.0105, L803.0600, L3400.8000, L506.0250 #### [facility] [address] [facility] [place], [address] Vitamin D,25 Hydroxyon 10-21 Vitamin D 25-OH 23.8 ng/mL Normal [facility] Comment on above: Order Comment: DIANA WEBER GETS VITD FOL B12 [address] HOM[address] BURDEN GETS QF Result Comment: Radha min D 25(OH) Status Range Deficiency <20 ng/mL (50nmol/L) Insufficiency 20 - 30 ng/mL (50 - 75 nmol/L) Sufficiency 30 - 100 ng/mL (75 - 250 nmol/L) Toxicity >100 ng/mL (>250 nmol/L) Performed By: #### L 7400.3000, L506.1000, L503.0105, L803.0600, L3400.8000, L506.0250 #### [facility] [place], [address] Absolute lymphocyte countOrd ered By: Ally Griggs on 10-23-2022 Lymphocytes Auto (Unsp spec) [#/Vol] 2.41 10*3/uL 0.83-4.51 [facility] Basophil percentageOrdered B y: Ally Griggs on 10-23-2022 Basophils/100 WBC (Bld) 0.9 % 0-1 [facility] Bilirubin [Mass/Vol] 0.50 mg/dL 0.20-1.00 [facility] Comment on above: For patients on eltr ombopag therapy, use of Dimension [place]well TBIL is not recommended. Chloride [Moles/Vol] 104 mmol/L 98-107 [facility] Eosinophils/100 WBC (Bld) 0.8 % 0-5 [facility] Glucose [Mass/Vol] 92 mg/dL 74-106 [facility] Neutrophils (Bld) [#/Vol] 4.8 10*3/uL 2.0-7.7 [facility] Neutrophils/100 WBC (Bld) 59.3 % 47-70 [facility] Potassium [Moles/Vol] 3.9 mmol/L 3.5-5.1 [facility] Protein [Mass/Vol] 8.0 g/dL 6.4-8.2 [facility] Sodium [Moles/Vol] 136 mmol/L 136-145 [facility] WBC (Bld) [#/Vol] 8.0 10*3/uL 4.4-11.0 [facility] Blood erythrocytes count (nu mber/volume)Ordered By: Ally Griggs on 10-23-2022 RBC (Bld) [#/Vol] 5.24 10*6/uL 4.6-6.2 [facility] Blood hemoglobin measurement (mass/volume)Ordered By: Ally Griggs on 10-23-2022 Hemoglobin (Bld) [Mass/Vol] 15.7 g/dL 13.0-16.5 [facility] Blood lymphocytes/100 leukoc ytesOrdered By: Ally Griggs on 10-23-2022 Lymphocytes/100 WBC (Bld) 30.2 % 19-41 [facility] Blood monocytes/100 leukocyt esOrdered By: Ally Griggs on 10-23-2022 Monocytes/100 WBC (Bld) 8.4 % 0-10 [facility] Blood platelet mean volumeOr dered By: Ally Griggs on 10-23-2022 Platelet mean volume (Bld) [Entitic vol] 10.7 fL 6.2-12.0 [facility] Determination of erythrocyte mean corpuscular volume (MCV)Ordered By: Ally Griggs on 10-23-2022 MCV (RBC) [Entitic vol] 89.9 fL 80-94 [facility] Hematocrit Auto (Bld) [Volum e fraction]Ordered By: Ally Griggs on 10-23-2022 Hematocrit (Bld) [Volume fraction] 47.1 % 40-54 [facility] - Chemistry and C hemistry - challengeOrdered By: Ally Griggs on 10-23-2022 ALP [Catalytic activity/Vol] 73 U/L 45-117 [facility] ALT [Catalytic activity/Vol] 37 U/L 16-61 [facility] CO2 [Moles/Vol] 27.0 mmol/L 21.0-32.0 [facility] Globulin (S) [Mass/Vol] 3.9 g/dL 2.2-4.2 [facility] Urea nitrogen/Creatinine [Mass ratio] 12.0 mg/mg 10-20 [facility] - Hematology and Cell countsOrdered By: Ally Griggs on 10-23-2022 Erythrocyte distribution width (RBC) [Entitic vol] 40.9 fL 35.1-43.9 [facility] Erythrocyte distribution width (RBC) [Ratio] 12.4 % 11.6-14.6 [facility] Immature granulocytes/100 WBC (Bld) 0.400 % 0.0-0.9 [facility] Comment on above: IG% - Immature Granu locytes (promyelocytes, myelocytes and metamyelocytes) > 1% indicates that a LEFT SHIFT is Present. MCH (RBC) [Entitic mass] 30.0 pg 27.0-32.0 [facility] Nucleated RBC/100 WBC (Bld) [Ratio] 0 % 0-5 [facility] MCHC Auto (RBC) [Mass/Vol]Or dered By: Ally Griggs on 10-23-2022 MCHC (RBC) [Mass/Vol] 33.3 g/dL 32-36 [facility] No Panel InformationOrdered By: Ally Griggs on 10-23-2022 Estimated GFR (MDRD) Amer 82 mL/min >60 [facility] Comment on above: GFR Calc Estimated GFR (MDRD) Non-Af Amer 67 mL/min >60 [facility] Comment on above: Non- GFR Calc Platelets bldOrdered By: Cesario Griggs on 10-23-2022 Platelets (Bld) [#/Vol] 353 10*3/uL 150-450 [facility] Serum or plasma albumin jeevan urement (mass/volume)Ordered By: Ally Griggs on 10-23-2022 Albumin [Mass/Vol] 4.1 g/dL 3.2-5.0 [facility] Serum or plasma albumin/glob ulin mass ratioOrdered By: Ally Griggs on 10-23-2022 Albumin/Globulin [Mass ratio] 1.1 {ratio} 0.9-2.4 [facility] Serum or plasma calcium jeevan urement (mass/volume)Ordered By: Ally Griggs on 10-23-2022 Calcium [Mass/Vol] 9.5 mg/dL 8.5-10.1 [facility] Serum or plasma creatinine m easurement (mass/volume)Ordered By: Ally Griggs on 10-23-2022 Creatinine [Mass/Vol] 1.25 mg/dL 0.70-1.30 [facility] Comment on above: The validity of the calculated GFR & GFRAA in patients over 70 years has not been determined. Clinical correlation is essential. Serum or plasma urea nitroge n measurement (mass/volume)Ordered By: Ally Griggs on 10-23-2022 Urea nitrogen [Mass/Vol] 15 mg/dL 7-18 [facility] Thin prep Papanicolaou smear with manual screeningOrdered By: Ally Griggs on 10-23-2022 Thin prep Papanicolaou smear with manual screening 22 U/L 15-37 [facility] Thin prep Papanicolaou smear with manual screening 5 5-15 [facility] Whole blood hemoglobin A1c/t otal hemoglobin ratio (mass fraction)Ordered By: Ally Griggs on 10-23-2022 HbA1c (Bld) [Mass fraction] 5.6 % 3.8-5.6 [facility] Comment on above: Normal < 5.7 % Predi abetic 5.7 - 6.4 % Diabetic >or= 6.5 % Please note range changes. INFLUENZA A&B MOLECULAR (POC )on 06-21-2022 Flu A (POCT) Negative Negative Flu B (POCT) Negative Negative Procedural Control [facility] STREP A MOLECULAR (POC)on Procedural Control [facility] Strep A (POCT) Positive Abnormal Negative Vital Signs Date Time Vital Sign Value Performing Clinician Facility 12-16-2023 14:10-0400 Body mass index (BMI) [Ratio] 27.08 kg/m2 Anthony Anderson MD Work Phone: 12-16-2023 14:10-0400 Body temperature 98.1 [degF] Anthony Anderson MD Work Phone: 12-16-2023 14:10-0400 Body weight 93.1 kg Anthony Anderson MD Work Phone: 12-16-2023 14:10-0400 Diastolic blood pressure 82 mm[Hg] Anthony Anderson MD Work Phone: 12-16-2023 14:10-0400 Heart rate 80 /min Anthony Anderson MD Work Phone: 12-16-2023 14:10-0400 Respiratory rate 16 /min Anthony Anderson MD Work Phone: 12-16-2023 14:10-0400 SaO2% (BldA) [Mass fraction] 100 % Anthony Anderson MD Work Phone: 12-16-2023 14:10-0400 Systolic blood pressure 138 mm[Hg] Anthony Anderson MD Work Phone: 10-23-2022 12:15-0400 Diastolic blood pressure 86 mm[Hg] Dr. Ally Griggs Work Phone: [facility] 10-23-2022 12:15-0400 Systolic blood pressure 140 mm[Hg] Dr. Ally Griggs Work Phone: [facility] 10-23-2022 11:35-0400 Body height 185.[address] Ally Griggs Work Phone: [facility] 10-23-2022 11:35-0400 Body mass index (BMI) [Ratio] 27.4 kg/m2 Dr. Ally Griggs Work Phone: [facility] 10-23-2022 11:35-0400 Body temperature 98.9 [degF] Dr. Ally Griggs Work Phone: [facility] 10-23-2022 11:35-0400 Body weight 94.[address] Ally Griggs Work Phone: [facility] 10-23-2022 11:35-0400 Heart rate 70 /min Dr. Ally Griggs Work Phone: [facility] 10-23-2022 11:35-0400 Respiratory rate 16 /min Dr. Ally Griggs Work Phone: [facility] 10-23-2022 11:35-0400 SaO2% (BldA) [Mass fraction] 95 % Dr. Ally Griggs Work Phone: [facility] 06-21-2022 09:08-0500 Body temperature 99 [degF] Elyssa Herrera APRN.CNP Work Phone: 06-21-2022 09:08-0500 Body weight 99.16 kg Elyssa Praisler-Wood [employer].ACCOUNT SUPPORT ASSOCIATE Work Phone: 06-21-2022 09:08-0500 Diastolic blood pressure 90 mm[Hg] Elyssa Praisler-Wood WELDING LEAD [employer]NER.ACCOUNT SUPPORT ASSOCIATE Work Phone: 06-21-2022 09:08-0500 Heart rate 85 /min Elyssa Praisler-Wood WELDING LEAD [employer]NER.ACCOUNT SUPPORT ASSOCIATE Work Phone: 06-21-2022 09:08-0500 Respiratory rate 21 /min Elyssa Praisler-Wood WELDING LE[employer]NER.ACCOUNT SUPPORT ASSOCIATE Work Phone: 06-21-2022 09:08-0500 SaO2% (BldA) [Mass fraction] 100 % Elyssa Praisler-Wood WELDING LEAD [employer]NER.ACCOUNT SUPPORT ASSOCIATE Work Phone: 06-21-2022 09:08-0500 Systolic blood pressure 122 mm[Hg] Elyssa Praisler-Wood WELDING LEAD [employer].ACCOUNT SUPPORT ASSOCIATE Work Phone: 09-26-2021 18:49-0400 Heart rate 104 /min Alberta Bogner PA-C Work Phone: 09-26-2021 18:42-0400 Body temperature 100.71 [degF] Alberta Bogner PA-C Work Phone: 09-26-2021 18:42-0400 Body weight 94.08 kg Alberta Bogner PA-C Work Phone: 09-26-2021 18:42-0400 Diastolic blood pressure 90 mm[Hg] Alberta Bogner PA-C Work Phone: 09-26-2021 18:42-0400 Respiratory rate 20 /min Alberta Bogner PA-C Work Phone: 09-26-2021 18:42-0400 SaO2% (BldA) [Mass fraction] 98 % Alberta Bogner PA-C Work Phone: 09-26-2021 18:42-0400 Systolic blood pressure 122 mm[Hg] Alberta Ge PA-C Work Phone: Encounters Encounter Date Encounter Type Care Provider Facility Start: 12-16-2023 End: 12-16-2023 ambulatory Facility:[facility] Start: 12-16-2023 End: 12-16-2023 Patient encounter procedure Anthony Anderson MD Work Phone: [facility] Comment on above: Acute bilateral low back pain without sciatica (Primary Dx) Start: 10-26-2023 Encounter for genera l adult medical examination without abnormal findings Carlos SIMMS [facility] Start: 10-26-2023 End: 10-26-2023 ambulatory Ally Griggs Facility:[facility] Start: 10-22-2023 End: 10-22-[address] [facility] Facility:[facility] Start: 10-23-2022 End: 10-23-[address] Ally Griggs Work Phone: [facility] Work Phone: Start: 10-23-2022 End: 10-23-[address] Ally Griggs Work Phone: [facility] Work Phone: Start: 06-21-2022 End: 06-21-2022 Patient encounter procedure Elyssa Herrera APRN.CNP Work Phone: [facility] Care Comment on above: Exposure to influenz a (Primary Dx); Flu-like symptoms Start: 09-26-2021 End: 09-26-2021 Office outpatient visit 15 minutes Alberta Ge PA-C Work Phone: [facility] Care Comment on above: Sore throat (Primary Dx) Procedures Date Procedure Procedure Detail Performing Clinician Start: 06-21-2022 INFLUENZA A&B MOLECU LAR (POC) Elyssa Herrera APRN.CNP Work Phone: Start: 09-26-2021 STREP A MOLECULAR (POC) Alberta Ge PA-C Work Phone: Start: 09-07-2020 Colonoscopy Alberta Ge PA-C Work Phone: Start: 11-08-2013 Lipid 1996 panel - S tila or Plasma Anthony Anderson MD Work Phone: Plan of Treatment Date Care Activity Detail Author Start: 05-20-2028 Urine microalbumin profile DTaP,Tdap,Td Vaccine (3 - Td or Tdap) Start: 09-07-2025 Colonoscopy COLONOSCOPY Start: 09-07-2025 COLORECTAL CANCER SCREENING COLORECTAL CANCER SCREENING Start: 09-07-2025 Screening for malignant neoplasm of colon Start: 12-16-2023 Covid-19 Vaccine ( season) Covid-19 Vaccine () Start: 12-16-2023 Influenza vaccination Influenza Vaccine (#1) [facility] Start: 11-09-2023 Urine microalbumin profile DTAP,TDAP,TD (2 - Td or Tdap) Start: 11-08-2018 Lipid panel Lipid Screening Start: 11-08-2018 LIPID SCREEN LIPID SCREEN Start: 1998 Anxiety Screening Anxiety Screening Start: 1998 HIV SCREENING HIV SCREENING Start: 1998 HIV screening HIV Screening SARS-CoV-2 (COVID-19 ) RNA [Presence] in Respiratory specimen by SONI with probe detection 2019 CORONAVIRUS Microbiology Routine Flu-like symptoms 06/21/2022 9:41 AM EST [facility] Work Phone: Immunizations Immunization Date Immunization Notes Care Provider Fa glenn 02-03-2022 COVID-19 booster vaccine, age 12+ yr, bivalent (MODERNA) Elyssa Herrera APRN.ACCOUNT SUPPORT ASSOCIATE Work Phone: 02-03-2022 influenza, seasonal, injectable Elyssa Herrera WELDING LEAD BURNER.ACCOUNT SUPPORT ASSOCIATE Work Phone: 02-03-2022 influenza virus vacc ine, unspecified formulation Anthony Anderson MD Work Phone: 03-04-2021 Covid (Pfizer) Dr. Ally collazo Work Phone: [facility] 01-15-2021 Influenza, injectabl e, [place] Canine Kidney, preservative free, quadrivalent Dr. Ally Griggs Work Phone: [facility] 08-11-2020 COVID-19 vaccine, fu ll dose (MODERNA) Alberta Bogner PA-C Work Phone: 07-15-2020 COVID-19 vaccine, fu ll dose (MODERNA) Alberta Bogner PA-C Work Phone: 01-13-2020 influenza, injectabl e, quadrivalent, contains preservative Alberta Bogner PA-C Work Phone: Work Phone: 01-13-2020 influenza, seasonal, injectable Dr. Ally Griggs Work Phone: [facility] 01-13-2019 influenza, seasonal, injectable Dr. Ally Griggs Work Phone: [facility] 05-20-2018 tetanus toxoid, redu micaela diphtheria toxoid, and acellular pertussis vaccine, adsorbed Dr. Ally Griggs Work Phone: [facility] 02-04-2018 Influenza, injectabl e, [place] Canine Kidney, preservative free, quadrivalent Dr. Ally Griggs Work Phone: [facility] 02-25-2017 influenza, seasonal, injectable Dr. Ally Griggs Work Phone: [facility] 06-20-2016 influenza, seasonal, injectable Dr. Ally Griggs Work Phone: [facility] 02-19-2015 influenza, injectabl e, quadrivalent, contains preservative Alberta Bogner PA-C Work Phone: 02-19-2015 influenza, seasonal, injectable Dr. Ally Griggs Work Phone: [facility] 12-22-2014 pneumococcal polysaccharide vaccine, 23 valent Alberta Ge PA-C Work Phone: Work Phone: 02-09-2014 influenza, seasonal, injectable Alberta Ge PA-C Work Phone: Work Phone: 11-08-2013 tetanus toxoid, redu micaela diphtheria toxoid, and acellular pertussis vaccine, adsorbed Alberta Ge PA-C Work Phone: Payers Date Payer Category Payer Self-pay [id number] 2021 Unknown [employer] PPO [id number] 2021-Present [phone] [address] [place] [address] PPO [id number] 2021 Unknown [employer] PPO [id number] 2021-Present [phone] [address] [place] [address] PPO [id number] 2021 Unknown [id number] Private Health Insurance [employer] [id number] Unknown [id number] Unknown [id number] Unknown [id number] Social History Date Type Detail Facility Start: 03-16-2014 End: 06-21-2022 Tobacco smoking status NHIS Ex-smoker History of tobacco use Cigar Smoker [facility] Start: 03-16-2014 End: 06-21-2022 Tobacco use and exposure Former smokeless tobacco user End: 10-12-2003 History of tobacco use Chews Tobacco Start: 09-26-2021 End: 12-16-2023 Alcohol intake Current drinker of alcohol (finding) Start: 03-23-2020 End: 09-26-2021 Alcohol intake Start: 05-18-2019 End: 06-17-2019 History SDOH Alcohol Frequency 3 Start: 05-18-2019 End: 06-02-2019 History SDOH Alcohol Std Drinks 1 Start: 11-08-2013 History SDOH Alcohol Comment drinks a mixed cocktail on sunday, Start: 06-17-2019 History SDOH Social Connections Get Together 98 Start: 05-18-2019 End: 06-10-2020 History SDOH Social Connections Membership 2 Start: 05-18-2019 History SDOH Physica l Activity DPW 5 Start: 06-17-2019 History SDOH Financial 4 Start: 05-17-2019 Education 18 Start: 10-11-2018 End: 06-21-2022 Tobacco Comment rare cigar Start: 1980 Sex Assigned At Not on file [facility] Start: 09-16-2021 End: 09-26-2021 Exposure to SARS-CoV-2 (event) Not sure History of tobacco use Current smoker [facility] Start: 10-23-2022 Tobacco smoking stat us LAIS Unknown if ever smoked [facility] Start: 1980 Sex Assigned At Male W [facility] Start: 06-17-2019 End: 03-23-2020 Social connection and isolation panel How often do you get together with friends or relatives? Patient declined Do you belong to any clubs or organizations such as faith groups, unions, fraternal or athletic groups, or school groups? No Are you now , , , , never or living with a partner? How often to you hav e a drink containing alcohol? 2-4 times a month How many standard dr inks containing alcohol do you have on a typical day? 1 or 2 How often do you hav e 6 or more drinks on 1 occasion? Never How hard is it for y ou to pay for the very basics like food, housing, medical care, and heating Not very hard Do you feel stress - tense, restless, nervous, or anxious, or unable to sleep at night because your mind is troubled all the time - these days [OSQ] Only a little (I/We) worried wheth er (my/our) food would run out before (I/we) got money to buy more. Never true Clinical Notes 05-18-2014 to 12-16-2023 Anthony Anderson MD - 12/16/2023 2:13 PM EDTPatient Holden Herrera APRN.CNP - 06/21/2022 9:31 AM Damaso Ge PA-C - 09/26/2021 6:44 PM EDT Note Date & Type Note Facility 12-16-2023 Note HNO ID: [id number] Author: ANTHONY ANDERSON MD Service: ? Author Type: Physician Type: Progress Notes Filed: 12/16/2023 14:30 Note Text: Patient presents with: Low Back Pain: left side x 3 days, moved fish tank,increased this morning while bending over HPI: Back pain: Duration: initially tweaked his back lifting a fish tank 2 days ago; significantly worsened bending over to get a pet bowl this morning Character: tight, spasm, sharp Location: initially band bilateral lumbar, more right low back today Radiation: No. Aggravating: bending and twisting Relieving: standing, heat Pain relievers: aleve, muscle relaxer Associated: back seemed to seize up this morning Pertinent negatives: Denies numbness or weakness, fever, loss of bladder or bowel control. MEDICATIONS: amphetamine-dextroamphetamine XR (ADDERALL XR) 20 mg capsule take 1 capsule by mouth daily in the morning QELBREE 100 mg capsule, extended release Take 1 capsule by mouth every afternoon. TREMFYA 100 mg/mL omeprazole (PRILOSEC) 20 mg capsule Take 2 capsules by mouth daily before breakfast. 1/2 hr before meal. dupilumab (DUPIXENT PEN) 300 mg/2 mL pen injection ALLERGIES: ALLERGIES Allergen Reactions Dust Mites Other: See Comments Positive skin test dust mites. Feathers Intolerance Seasonal Allergies Itching [place] Pollen-Short R* Intolerance VITALS: BP 138/82 Pulse 80 Temp 36.7 ?C (98.1 ?F) Resp 16 Wt 93.1 kg (205 lb 4 oz) SpO2 100% BMI 27.08 kg/m? PHYSICAL EXAM: GEN: pleasant, alert, no acute distress, stands for comfort, painful transition to table HEENT: PERRL, EOMI, MMM HEART: regular rate, regular rhythm, no murmurs LUNGS: clear to auscultation, no wheezes or crackles, no increased WOB BACK: Normal curvature of spine. No midline tenderness. Left lateral lumbar tenderness. Straight leg test uncomfortable on the left. Deep tendon reflexes 2+/4 at patellas. Normal lower extremity strength. ASSESSMENT/PLAN: 1. Acute bilateral low back pain without sciatica - ICD9: 724.2, 338.19, ICD10: M54.50 Back strain without red flags. As needed analgesia, ice, heat - CYCLOBENZAPRINE 10 MG TABLET Avoid bed rest Seek immediate evaluation for loss of bladder or bowel control, unexplained fever, or progressive weakness or numbness. Anthony Anderson MD [facility] 12-16-2023 History of Presen t illness Narrative Patient presents with: Low Back Pain: left side x 3 days, moved fish tank,increased this morning while bending over HPI: Back pain: Duration: initially tweaked his back lifting a fish tank 2 days ago; significantly worsened bending over to get a pet bowl this morning Character: tight, spasm, sharp Location: initially band bilateral lumbar, more right low back today Radiation: No. Aggravating: bending and twisting Relieving: standing, heat Pain relievers: aleve, muscle relaxer Associated: back seemed to seize up this morning Pertinent negatives: Denies numbness or weakness, fever, loss of bladder or bowel control. MEDICATIONS: amphetamine-dextroamphetamine XR (ADDERALL XR) 20 mg capsule take 1 capsule by mouth daily in the morning QELBREE 100 mg capsule, extended release Take 1 capsule by mouth every afternoon. TREMFYA 100 mg/mL omeprazole (PRILOSEC) 20 mg capsule Take 2 capsules by mouth daily before breakfast. 1/2 hr before meal. dupilumab (DUPIXENT PEN) 300 mg/2 mL pen injection ALLERGIES: ALLERGIES Allergen Reactions Dust Mites Other: See Comments Positive skin test dust mites. Feathers Intolerance Seasonal Allergies Itching [place] Pollen-Short R* Intolerance VITALS: BP 138/82 Pulse 80 Temp 36.7 C (98.1 F) Resp 16 Wt 93.1 kg (205 lb 4 oz) SpO2 100% BMI 27.08 kg/m PHYSICAL EXAM: GEN: pleasant, alert, no acute distress, stands for comfort, painful transition to table HEENT: PERRL, EOMI, MMM HEART: regular rate, regular rhythm, no murmurs LUNGS: clear to auscultation, no wheezes or crackles, no increased WOB BACK: Normal curvature of spine. No midline tenderness. Left lateral lumbar tenderness. Straight leg test uncomfortable on the left. Deep tendon reflexes 2+/4 at patellas. Normal lower extremity strength. ASSESSMENT/PLAN: 1. Acute bilateral low back pain without sciatica - ICD9: 724.2, 338.19, ICD10: M54.50 Back strain without red flags. As needed analgesia, ice, heat - CYCLOBENZAPRINE 10 MG TABLET Avoid bed rest Seek immediate evaluation for loss of bladder or bowel control, unexplained fever, or progressive weakness or numbness. Anthony Anderson MD documented in this encounter 06-21-2022 Instructions Elyssa Herrera APRN.ACCOUNT SUPPORT ASSOCIATE - 06/21/2022 9:56 AM EST ASSESSMENT/PLAN: 1. Exposure to influenza - ICD9: V01.79, ICD10: Z20.828 (primary diagnosis) - patient requests Tamiflu for prophylaxis - INFLUENZA A&B MOLECULAR (POC) - OSELTAMIVIR 75 MG CAPSULE 2. Flu-like symptoms - ICD9: 780.99, ICD10: R68.89 - negative test for influenza today. - 2019 CORONAVIRUS - Follow-up with your PCP in 3-5 days if symptoms have not improved or sooner if symptoms worsen - Discussed red flags and need for immediate medical evaluation if any occur. - Discussed supportive care treatment with fluids, rest and analgesia. - Discussed expected course of illness Elyssa Herrera APRN.CNP Treatment for Viral Upper Respiratory Tract Infections Your body will kill off the virus by itself. Additionally, you can prime your body's immune system. This may help you get better more quickly. Drink lots of fluids Make sure you are eating well Get plenty of rest We do not have any medications that kill off these viruses. Antibiotics are used to treat bacterial infections; however, they are not active against viral infections. There are some things that might help you feel better, though. Vaporizers, humidifiers, hot showers, and hot fluids help open respiratory and sinus passages [place] Nasal [place] may offer relief of nasal and head congestion Sanchez's Vapor Rub may relieve congestion Tylenol and Advil help control fevers and headaches Salt water gargles help relieve sore throats Chloraceptic spray or throat lozenges may also help relieve sore throat symptoms Occasionally, viral infections turn into something more serious. You should see your doctor or return to the Urgent Care if: You have fevers for longer than five days You have fevers above 102 degrees You are still sick after 10 days You have shortness of breath or wheezing After several days you are getting worse rather than better documented in this encounter 06-21-2022 History of Presen t illness Narrative Subjective Cough Associated symptoms include sore throat and myalgias. Pertinent negatives include no chills. Remington Boyer is a 41 year old male who presents with cough, body aches, that began this morning and his tested positive yesterday for influenza A. He denies fever. He has not taken any medication today for illness. Review of Systems Constitutional: Negative for chills and fever. HENT: Positive for sore throat. Respiratory: Positive for cough. Cardiovascular: Negative. Gastrointestinal: Negative for diarrhea, nausea and vomiting. Musculoskeletal: Positive for myalgias. Skin: Negative. BP 122/90 Pulse 85 Temp 37.2 C (99 F) Resp 21 Wt 99.2 kg (218 lb 9.6 oz) SpO2 100% BMI 28.84 kg/m PAST MEDICAL HISTORY Diagnosis Date ADD (attention deficit disorder) Psoriasis PAST SURGICAL HISTORY Procedure Laterality Date COLONOSCOPY FLX DX W/COLLJ SPEC WHEN PFRMD 09/07/2020 ESOPHAGOGASTRODUODENOSCOPY TRANSORAL DIAGNOSTIC 09/07/2020 PAST SURGICAL HISTORY OF 10/14/2013 moles removed. [employer] [facility] ALLERGIES Dust Mites, Feathers, Seasonal Allergies, and [place] Pollen-Short Ragweed MEDICATIONS TREMFYA 100 mg/mL DUPIXENT PEN 300 mg/2 mL pen omeprazole (PRILOSEC) 20 mg capsule Take 2 capsules by mouth once daily. omeprazole (PRILOSEC) 20 mg capsule Take 2 capsules by mouth daily before breakfast. 1/2 hr before meal. buPROPion (WELLBUTRIN) 75 mg tablet Take 1 tablet by mouth twice daily. FAMILY HISTORY Problem Relation Age of Onset Alzheimer's Disease Maternal Grandmother Cancer Maternal Grandfather STomach cancer Hypertension Father Social History Tobacco Use Smoking status: Former Types: Cigars Smokeless tobacco: Former Types: Chew Quit date: 10/12/2003 Tobacco comments: rare cigar Substance Use Topics Alcohol use: Yes Alcohol/week: 2.5 standard drinks Types: 1 Glasses of Wine (5oz) per week Comment: drinks a mixed cocktail on sunday, Objective Physical Exam Vitals and nursing note reviewed. Constitutional: Appearance: Normal appearance. HENT: Nose: No congestion or rhinorrhea. Mouth/Throat: Mouth: Mucous membranes are moist. Pharynx: Oropharynx is clear. No oropharyngeal exudate or posterior oropharyngeal erythema. Cardiovascular: Rate and Rhythm: Normal rate and regular rhythm. Heart sounds: Normal heart sounds. Pulmonary: Effort: Pulmonary effort is normal. No respiratory distress. Breath sounds: Normal breath sounds. No wheezing or rales. Skin: General: Skin is warm and dry. Findings: No erythema or rash. Neurological: Mental Status: He is alert. ASSESSMENT/PLAN: 1. Exposure to influenza - ICD9: V01.79, ICD10: Z20.828 (primary diagnosis) - patient requests Tamiflu for prophylaxis - INFLUENZA A&B MOLECULAR (POC) - OSELTAMIVIR 75 MG CAPSULE 2. Flu-like symptoms - ICD9: 780.99, ICD10: R68.89 - negative test for influenza today. - 2019 CORONAVIRUS - Follow-up with your PCP in 3-5 days if symptoms have not improved or sooner if symptoms worsen - Discussed red flags and need for immediate medical evaluation if any occur. - Discussed supportive care treatment with fluids, rest and analgesia. - Discussed expected course of illness Elyssa Herrera APRN.ISAIAH documented in this encounter 09-26-2021 History of Presen t illness Narrative 09/26/2021 Patient presents with: Sore Throat: fever, chills x1 day SUBJECTIVE: This is a 40 year old that is here today for Complaint(s) of sore throat and fever x yesterday. States he was able to play a round of golf yesterday morning, felt fine and then when he got home fever and chills hit him like a ton of bricks. Drinking fluids. Having a lot of pain with swallowing, but no difficulty. Had a PCR test yesterday at [facility] for COVID-negative. + body aches and chills. Mild nasal congestion. Occasional cough, nothing persistent. No significant VACA. Denies SOB, wheezing, vomiting, diarrhea. He did have a flu shot this year- early December of last year. No one else sick at home. PAST MEDICAL HISTORY Diagnosis Date ADD (attention deficit disorder) Psoriasis ALLERGIES Dust Mites and Seasonal Allergies MEDICATIONS Current Outpatient Medications Medication Sig omeprazole (PRILOSEC) 20 mg capsule Take 2 capsules by mouth once daily. omeprazole (PRILOSEC) 20 mg capsule Take 2 capsules by mouth daily before breakfast. 1/2 hr before meal. buPROPion (WELLBUTRIN) 75 mg tablet Take 1 tablet by mouth twice daily. No current facility-administered medications for this visit. SOCIAL HISTORY Social History Tobacco Use Smoking status: Former Smoker Types: Cigars Smokeless tobacco: Former User Types: Chew Quit date: 10/12/2003 Tobacco comment: rare cigar Substance Use Topics Alcohol use: Yes Alcohol/week: 2.5 standard drinks Types: 1 Glasses of Wine (5oz) per week Comment: drinks a mixed cocktail on sunday, Drug use: Not on file Comment: in high school none now. REVIEW OF SYSTEMS See HPI OBJECTIVE: BP 122/90 Pulse 116 Temp (!) 38.2 C (100.7 F) Resp 20 Wt 94.1 kg (207 lb 6.4 oz) SpO2 98% BMI 27.36 kg/m APPEARANCE alert, in no acute distress, well-hydrated, well nourished. Non-toxic appearing. EYES PERRLA, conjunctiva and sclera normal. EARS External ears normal, canals clear. TMs normal IVY NOSE/SINUS Nares normal. Septum midline. Mucosa normal. No drainage or sinus tenderness. THROAT+ IVY tonsillar edema with erythema and exudate. Uvula midline. Controlling secretions without difficulty. Speaking in complete sentences. NECK Supple, + IVY anterior cervical adenopathy; thyroid symmetric, normal size, HEART tachycardic with regular rhythm with normal S1 and S2, LUNG clear to auscultation, No wheezing, rhonchi, rales. ASSESSMENT/PLAN: 1. Sore throat - ICD9: 462, ICD10: J02.9 - Alere Strep Test positive, no culture pending - Discussed supportive care treatment with fluids, rest and analgesia. - The patient may also use warm salt water gargles, throat lozenges and/or OTC throat spray as needed and nasal saline gtts and suction prn. - Contagious dz precautions discussed- including considered contagious until on antibiotics for 24 hours - The patient should follow up in 3-5 days if symptoms persist or worsen - Call back if drooling, increased temperature, symptoms of dehydration and/or still sick in one week - STREP A MOLECULAR (POC) Reviewed red flags and when to seek care sooner. The patient indicates understanding of these issues and agrees with the plan. Alberta Ge PA-C documented in this encounter 05-18-2014 History of Past i llness Narrative Problem Noted Date Resolved Date Testicular pain 05/18/2014 06/18/2019 Right lower quadrant pain 05/18/20142019 documented as of this encounter (statuses as of 09/29/2021) 02-02-2015 History of Past illness Narrative* Problem Noted Date Resolved Date Testicular pain 05/18/2014 06/18/2019 Right lower quadrant pain 05/18/20142019 documented as of this encounter (statuses as of 06/21/2022) Evaluation note* Diagnosis Sore throat- Primary Acute pharyngitis documented in this encounter Evaluation note* Diagnosis Exposure to influenza- Primary Contact with or exposure to other viral diseases Flu-like symptoms Other general symptoms documented in this encounter Evaluation note* Diagnosis Onset Date Resolution Status GERD (gastroesophageal reflux disease) acute Psoriasis acute Elevated blood pressure reading noneactive Seasonal allergies noneactiv e Annual physical exam noneact merrill ADHD noneactive [facility] Work Phone: Evaluation note* Diagnosis Depressed- Primary Depressive disorder, not elsewhere classified IBS (irritable bowel syndrome) Irritable bowel syndrome Attention deficit Attention or concentration deficit Routine health maintenance Routine general medical examination at a health care facility Attention deficit- Primary Attention or concentration deficit Need for prophylactic vaccination and inoculation against influenza Multiple allergies Other allergy, other than to medicinal agents Stuffy nose Other diseases of nasal cavity and sinuses Attention deficit- Primary Attention or concentration deficit Depressed Depressive disorder, not elsewhere classified Drug allergy- Primary Other drug allergy Attention deficit Attention or concentration deficit Heel pain Pain in limb Attention deficit- Primary Attention or concentration deficit Itching Unspecified pruritic disorder Attention deficit- Primary Attention or concentration deficit Nasal congestion Other diseases of nasal cavity and sinuses Need for prophylactic vaccination against Streptococcus pneumoniae (pneumococcus) Need for prophylactic vaccination against streptococcus pneumoniae (pneumococcus) Stuffy nose Other diseases of nasal cavity and sinuses Observed sleep apnea- Primary Unspecified sleep apnea Attention deficit Attention or concentration deficit Attention deficit- Primary Attention or concentration deficit Enlarged tonsils Hypertrophy of tonsils alone Sleep concern Problems related to lack of adequate sleep Stuffy nose Other diseases of nasal cavity and sinuses Acute bilateral low back pain without sciatica- Primary documented in this encounter Advance Directives Documents on File Type Date Recorded 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 Advance Directive(s) 09/07/2020 10:04 AM Advance Directive(s) 08/25/2020 11:56 AM Chief Complaint and Reason for Visit Chief Complaint 1 Y FU Reason for Visit GERD (gastroesophage al reflux disease) Psoriasis Elevated blood pressure reading Seasonal allergies Annual physical exam ADHD Family History Relationship Condition Age at Onset Recorded Date/T [place] grandfather Malignant neoplasm of colon Unknown grandmother Dementia Unknown Malignant neoplasm of throat Unknown Summary Purpose Additional Source Comments Source Comments (unrecognize d section and content) In the event this informatio n is protected by the Federal Confidentiality of Alcohol and Drug Abuse Patient Records regulations: The Federal rules restrict any use of the information to criminally investigate or prosecute any alcohol or drug abuse patient.In the event this information is protected by the Federal Confidentiality of Alcohol and Drug Abuse Patient Records regulations: The Federal rules restrict any use of the information to criminally investigate or prosecute any alcohol or drug abuse patient.In the event this information is protected by the Federal Confidentiality of Alcohol and Drug Abuse Patient Records regulations: The Federal rules restrict any use of the information to criminally investigate or prosecute any alcohol or drug abuse patient. Reason for Visit (unrecogniz ed section and content) Reason Comments Sore Throat fever, chills x1 day Reason Comments Cough Body caches, sore th roat started this morning Reason Comments Low Back Pain left side x 3 days, moved fish tank,increased this morning while bending over Care Teams (unrecognized sec tion and content) Team Status: Active Member Role Status Dates Dr. Peace Stuart MD Family Provider Active Dr. Ally Griggs MD Primary Care Provider Active Team Status: Inactive Member Role Status Dates Dr. Ally Griggs MD Primary Care Pro vider, Attending Provider, Referring Provider Active Goals (unrecognized section and content) Goals may be documented in a n alternate section (unrecognized sect ion and content) No Status Records FoundNo Status Records Found INFORMATION SOURCE (unrecogn ized section and content) DATE CREATED AUTHOR 11/04/2023 [facility] DATE CREATED AUTHOR AUTHOR'S YUMIKOIZ ATISAIAH 12/16/2023 [facility] FOR RECORDS PERTAINING TO PATIENTS WHO ARE OR HAVE BEEN ENROLLED IN A CHEMICAL DEPENDENCY/SUBSTANCEABUSE PROGRAM, SOME INFORMATION MAY BE OMITTED. This clinical summary was aggregated from multiple sources. Caution should be exercised in using it in the provision of clinical care. This summary normalizes information from multiple sources, and as a consequence, information in this document may materially change the coding, format and clinical context of patient data. In addition, data may be omitted in some cases. CLINICAL DECISIONS SHOULD BE BASED ON THE PRIMARY CLINICAL RECORDS. [employer] provides no warranty or guarantee of the accuracy or completeness of information in this document.
[2024-11-29 09:06] LABS: Hematocrit 41.7 % (40-54); Hemoglobin 14.3 g/dL (13.0-16.5); Immature Granulocytes Count 0.020 X10^3/uL (0.0-0.0); Mean Corp Hgb Conc 34.3 g/dL (32-36); Mean Corpuscular Volume 89.9 fL (80-94); Mean Platelet Vol. 9.8 fl (6.2-12.0); NRBC Flagged by Analyzer 0 % (0-5); Platelet Count 346 K/mm3 (150-450); RBC Distribution Width CV 13.0 % (11.6-14.6); RBC Distribution Width SD 42.6 fl (35.1-43.9); Red Blood Count 4.64 M/mm3 (4.6-6.2); White Blood Count 6.1 K/mm3 (4.4-11.0)
[2024-11-29 10:11] LABS: AST(SGOT) 29 U/L (<=37); Alanine Aminotransfer ALT/SGPT 27 U/L (<=46); Albumin, Serum 4.5 g/dL (3.5-5.0); Alkaline Phosphatase 54 U/L (40-129); Anion Gap 12 (5-15); BUN 19 mg/dL (4-19); BUN/Creat Ratio 16.4 RATIO (10-20); Calcium,Total 9.4 mg/dL (7.6-11.0); Carbon Dioxide 24.3 mmol/L (21.0-32.0); Chloride 104 mmol/L (98-108); Globulin 2.5 g/dL (2.2-4.2); Glucose 103 mg/dL (70-99); Potassium 4.4 mmol/L (3.3-5.1)
[2024-11-29 10:34] LABS: Cholesterol 188 mg/dL (<=200); Low Density Lipoprotein Calc. 101 mg/dL; Triglycerides 105 mg/dL; Very Low Density Lipoprotein 21 mg/dL (5-40); cholesterol:hdl ratio screen 2.86
[2024-12-04 10:08] LABS: QNTFERON TB Mitogen Value > 10.00 IU/mL (.); QNTFERON TB Nil Value 0.02 IU/mL (.); QNTFERON TB1+ Ag Value 0.06 IU/mL (.); QNTFERON TB2+ Ag Value 0.05 IU/mL (.); QNTIFERON TB Positive Criteria Negative (Negative)
== END | disposition home or self-care (01) ==
LOC: LAB 08:29
PROVIDERS: PCP Internal Medicine; Referring Provider Physician Assistant Medical; Visit Provider Physician Assistant Medical
DX: L20.89 Other atopic dermatitis (principal)
CPT/HCPCS: 36415; 80053; 80061; 85025; 86480